=== PATIENT | female | born 1985 | race African-American/Black ===

== ENCOUNTER 2021-06-04 12:40 | Outpatient (REF) | payer OTHER, SELFPAY | END 2021-06-04 12:41 | disposition home or self-care (01) | LOC: HO.HMGCLDS 12:40 | PROVIDERS: PCP Physician Assistant; Visit Provider Internal Medicine | DX: Z20.822 Contact with and (suspected) exposure to COVID-19 (principal) | CPT/HCPCS: C9803; U0003; U0005 ==

== ENCOUNTER 2021-09-05 12:58 | Outpatient (REF) | payer OTHER, SELFPAY | END 2021-09-05 12:59 | disposition home or self-care (01) | LOC: HO.HMGCLDS 12:58 | PROVIDERS: Visit Provider Internal Medicine | DX: Z20.822 Contact with and (suspected) exposure to COVID-19 (principal) | CPT/HCPCS: C9803; U0003; U0005 ==